=== PATIENT | female | born 1950 | race Caucasian/White ===

== ENCOUNTER → 2021-02-22 | Outpatient (CLI) | payer OTHER | LOC: SJCVC 11:27 | PROVIDERS: ATTEND Internal Medicine Cardiovascular Disease | DX: R94.31 Abnormal electrocardiogram [ECG] [EKG] (principal); R00.1 Bradycardia, unspecified; I48.0 Paroxysmal atrial fibrillation; E66.01 Morbid (severe) obesity due to excess calories; I34.0 Nonrheumatic mitral (valve) insufficiency; I10 Essential (primary) hypertension; Z68.37 Body mass index [BMI] 37.0-37.9, adult; Z88.1 Allergy status to other antibiotic agents; Z88.5 Allergy status to narcotic agent; Z88.8 Allergy status to other drugs, medicaments and biological substances; Z79.82 Long term (current) use of aspirin; Z79.899 Other long term (current) drug therapy; Z87.891 Personal history of nicotine dependence; Z98.890 Other specified postprocedural states ==

== ENCOUNTER → 2021-03-24 | Outpatient (CLI) | payer OTHER ==
[2021-03-24 08:42] LABS: HEMATOCRIT 39.8 % (37.0-47.0); HEMOGLOBIN 12.7 gm/dL (12.0-15.0); MCH 25.7 pg (26.0-34.0); MCV 80.4 fL (80.0-100.0); RBC 4.95 mil/uL (4.20-5.00); RDW 14.5 % (10.5-14.5); WBC 4.6 thou/uL (4.0-11.0)
[2021-03-24 08:56] LABS: ALBUMIN 3.8 g/dL (3.4-5.0); CALCIUM 9.3 mg/dL (8.5-10.1); POTASSIUM 4.2 mmol/L (3.5-5.1); TOTAL BILIRUBIN 0.4 mg/dL (0.2-1.0); TOTAL PROTEIN 7.4 g/dL (6.4-8.2)
== END ==
LOC: CAT
PROVIDERS: ATTEND Internal Medicine Cardiovascular Disease
DX: Z01.818 Encounter for other preprocedural examination (principal); I25.10 Atherosclerotic heart disease of native coronary artery without angina pectoris; E04.1 Nontoxic single thyroid nodule; K76.89 Other specified diseases of liver; M47.814 Spondylosis without myelopathy or radiculopathy, thoracic region; I48.91 Unspecified atrial fibrillation; Z88.8 Allergy status to other drugs, medicaments and biological substances; Z88.1 Allergy status to other antibiotic agents

== ENCOUNTER → 2021-03-28 | Outpatient (CLI) | payer OTHER ==
[~2021-03-28] VITALS: Ht 152.4 cm; Wt 92.5 kg
[~2021-03-28] MED LIST: ASA81BEC PO; CALTRATE-600 W1 EACH PO; CARDIZEM CD120 MG PO; CINNAMON500 MG PO; ELIQUIS5 MG PO; FISH OIL 1,001000 M3 PO; FUROSEMIDE 40 M40 MG PO; GARLIC1 EACH PO; KLOR-CON M2020 MEQ PO; MAGNESIUM250 M1 PO; NOXIFOL-D32500 UNIT PO; OMEPRAZOLE 20 M20 M1 PO; RENAL-VITE TAB0.8 MG PO; VITAMIN B-121000 MC2 PO; ZYRTEC10 M2 PO
[2021-03-28 07:07] VITALS: BP 126/60
[2021-03-28 07:28] LABS: ABSOLUTE NEUTROPHILS 2.2 thou/uL (1.4-8.2); BASOPHILS 0.7 % (0.0-2.0); HEMATOCRIT 37.4 % (37.0-47.0); HEMOGLOBIN 11.8 gm/dL (12.0-15.0); MCH 25.3 pg (26.0-34.0); MCHC 31.6 g/dL (28.0-37.0); MONOCYTES 12.1 % (1.0-8.0); PLATELET COUNT 163 thou/uL (150-400); POLYS 59.2 % (36.0-66.0); RBC 4.68 mil/uL (4.20-5.00); RDW 14.9 % (10.5-14.5); WBC 3.7 thou/uL (4.0-11.0)
[2021-03-28 07:31] LABS: CALCIUM 9.4 mg/dL (8.5-10.1); CREATININE 0.9 mg/dL (0.6-1.0); POTASSIUM 3.7 mmol/L (3.5-5.1)
[2021-03-28 07:36] LABS: APTT 28.4 Seconds (24.5-32.8); INR 0.98; PROTIME 10.7 Seconds (10.5-12.1)
[2021-03-28 07:38] LABS: ALBUMIN 3.6 g/dL (3.4-5.0); TOTAL BILIRUBIN 0.7 mg/dL (0.2-1.0); TOTAL PROTEIN 6.8 g/dL (6.4-8.2)
--- NOTE | 2021-03-28 11:42 | NUR ---
RETURNED TO RM 2 FROM PACU. REPORT RECIEVED. RT GROIN C/D/I, NO HEMATOMA NOTED.
--- NOTE | 2021-04-11 10:37 | P ---
[facility] [place] [id number] PROCEDURE REPORT Name: RASHEL WADDELL Ximena Room #: REG [facility]#: [id number] Admission: 03/28/21 Attend Phys: Jj Smiley MD Discharge: Date of : 52 Report #: [id number] THIS REPORT FOR: cc: July Wei MD, Emily G. MD Couchonnal, Luis F. MD ~ DATE OF SERVICE: 03/28/2021 PROCEDURES PERFORMED: 1. Atrial fibrillation ablation, CPT code 52327 2. Program stimulation pacing after IV drug infusion, CPT code 70363. 3. A 3D mapping, CPT code 17801. 4. Intracardiac echo, CPT code 95142. 5. Focal ablation -- CPT code 37583. DESCRIPTION OF PROCEDURE: The patient underwent general anesthesia. She was brought to the EP laboratory in fasting and sedated state, prepped and draped in a standard fashion, obtained access to the right femoral vein x 3, placing an 8, 9 and 7-Upper Sorbian short sheath. Under fluoroscopy, a decapolar catheter was placed in the coronary sinus and ICE catheter was placed in the right atrium and the patient was systemically heparinized. A transseptal was performed using an SL1 sheath and a [place] needle, which was straightforward. I then exchanged for the cryosheath and placed the Lasso catheter into the left atrium. A 3D geometry of the left atrium was created. I then started by isolating the pulmonary veins. Left superior pulmonary vein underwent a 3-minute freeze, isolated at 48 seconds. The left inferior pulmonary vein underwent a 3-minute freeze, isolating at 34 seconds. The right superior pulmonary vein underwent a 3-minute freeze isolating at 15 seconds. The right inferior pulmonary vein underwent a 3-minute freeze isolating at 38 seconds. I then remapped the atrium and it showed that all the veins were isolated. Atrial flutter ablation using an 8 mm and ramp sheath. Ablation was performed for a cavotricuspid isthmus dependent flutter. Preablation, the transisthmus conduction time was 16 milliseconds. Post-ablation, the transisthmus conduction time was 135 milliseconds with evidence of bidirectional block. A basic EP study was then performed and AV block was noted at 360 milliseconds. AV joyce ERP was noted at 270 milliseconds at a [address] cycle length. Isoproterenol infusion was started at 2 mcg per minute and a repeat EP study was performed. AV block was at 280. Atrial ERP was at 260 at [address] cycle length. There were no inducible arrhythmias. As such, catheters and sheaths were pulled. Hemostasis obtained. There was no evidence of pericardial effusion on intracardiac ultrasound. CONCLUSIONS: [facility] [address] [place] [address] PROCEDURE REPORT Name: RASHEL WADDELL Room #: REG [facility] CecileAleksandra#: [id number] Admission: 03/28/21 Attend Phys: Jj Smiley MD Discharge: Date of : 52 Report #: [id number] 1. Successful AFib ablation with isolation of the pulmonary veins. 2. Successful atrial flutter ablation with bidirectional block. <ELECTRONICALLY SIGNED> By: Jj Smiley MD 04/11/21 1037 [id number] Jj Smiley MD /nt
== END | disposition home or self-care (01) ==
LOC: CATH 06:21
PROVIDERS: ATTEND Internal Medicine Cardiovascular Disease
DX: I48.91 Unspecified atrial fibrillation (principal); I48.92 Unspecified atrial flutter; I10 Essential (primary) hypertension; E11.9 Type 2 diabetes mellitus without complications; E66.9 Obesity, unspecified; K21.9 Gastro-esophageal reflux disease without esophagitis; Z98.890 Other specified postprocedural states; Z79.899 Other long term (current) drug therapy; Z20.822 Contact with and (suspected) exposure to COVID-19; Z79.01 Long term (current) use of anticoagulants
CPT/HCPCS: 62110; 62900; 65020; 70005